=== PATIENT | male | born 1985 | race Caucasian/White ===

== ENCOUNTER 2017-10-26 16:11 | Emergency (ER) | payer OTHER ==
[~2017-10-26] VITALS: Ht 177.8 cm; Wt 67.6 kg
--- NOTE | 2017-10-26 16:17 | NUR ---
AAOX3, C/O "HEARING VOICES, FEELING OVERWHELMED BECAUSE THERE'S TOO MANY VOICES". DENIES SI/HI. RESP IS EVEN AND UNLABORED WITH NAD NOTED. AWAITING MD FOR EVAL.
[2017-10-26] MEDS ORDERED: QUETIAPINE FUMARATE 100 MG TABLET PO SCH (17:00)
--- NOTE | 2017-10-26 17:37 | NUR ---
[employer] OFFICER AT
--- NOTE | 2017-10-26 19:04 | NUR ---
REPORT GIVEN TO MARCI SOFIA FOR FAN.
--- NOTE | 2017-10-26 19:06 | NUR ---
RECEIVED REPORT FROM MARCI WANG FOR [facility]AN.
--- NOTE | 2017-10-26 19:30 | NUR ---
Patient discharged to home in stable condition. Written and verbal after care instructions given. Patient verbalizes understanding of instruction. ambulatory with a steady gait. pt accompanied by cry help facility staff
[2017-10-26 19:31] VITALS: BP 126/58
== END 2017-10-26 19:31 | disposition home or self-care (01) ==
LOC: ER 16:14
DX: F22 Delusional disorders (principal); F31.9 Bipolar disorder, unspecified; F43.10 Post-traumatic stress disorder, unspecified; Z91.018 Allergy to other foods
CPT/HCPCS: A4606; Z7610